=== PATIENT | female | born 1960 | race American Indian/Alaskan Native ===

== ENCOUNTER 2017-11-02 17:35 | Emergency (ER) | payer OTHER ==
--- NOTE | 2017-11-02 18:37 | XRay Report ---
FINAL REPORT EXAM: XR FOOT 3+V RT HISTORY: pain r/t injury TECHNIQUE: 3 views Left foot PRIORS: None. FINDINGS: No fracture or dislocation identified. Joint spaces are within normal limits. No erosive bony change identified. No bony lesions are identified. Small plantar calcaneal enthesophyte is noted. IMPRESSION: Negative foot series
[2017-11-03 02:00] VITALS: BP 142/88
--- NOTE | 2017-11-03 03:01 | Emergency Department Report ---
ED Lower Extremity HPI - General Chief Complaint: Extremity Injury, Lower Stated Complaint: RIGHT FOOT PAIN Time Seen by Provider: 11/03/17 02:01 Source: patient, family Mode of arrival: Wheelchair Limitations: No Limitations - History of Present Illness Initial Comments: Patient reports that she injured her right foot while getting out of bed on Monday. She is reporting pain and swelling. Denies any numbness or pain tingling. Pain 6 out of 10 and a cane to her right foot worse with movement and palpation bilateral resting. Denies any fever or chills. Denies any other injury. Patient has a history of hypertension and asthma. Fibromyalgia and anemia. Taking [id number] medication but did not help pain. MD Complaint: foot injury (pain and swelling) Onset/Timin -: days(s) Injury: Foot: Right (pain and swelling) Type of Injury: inversion Severity: moderate Severity scale (0 -10): 6 Improves With: immobilization, rest Worsens With: weight bearing, movement, palpation Context: other (get and out of bed and injured foot) Associated Symptoms: swelling, unable to bear weight. denies: snap/pop sensation, numbness, tingling, ambulatory Treatments Prior to Arrival: other (none) - Related Data Previous Rx's Medication Instructions Recorded Last Taken Type Acetaminophen/Codeine [Tylenol 1 tab PO Q6H PRN #12 tab 11/03/17 Unknown Rx /Codeine # 3 tab] Ibuprofen [Motrin] 600 mg PO Q8H PRN #15 tablet 11/03/17 Unknown Rx Allergies Allergy/AdvReac Type Severity Reaction Status Date / Time No Known Allergies Allergy Unverified 11/02/17 17:54 ED Review of Systems ROS: Stated complaint: RIGHT FOOT PAIN Other details as noted in HPI Comment: All other systems reviewed and negative Constitutional: no symptoms reported Respiratory: no symptoms reported Cardiovascular: denies: chest pain, palpitations, dyspnea on exertion, edema, syncope, paroxysmal nocturnal dyspnea Gastrointestinal: denies: abdominal pain, nausea, vomiting Genitourinary: denies: dysuria, hematuria Musculoskeletal: joint swelling, arthralgia. denies: back pain, myalgia Skin: denies: rash Neurological: abnormal gait (right foot due to injury). denies: headache, weakness, numbness, paresthesias, confusion ED Past Medical Hx - Past Medical History Previous Medical History?: Yes Hx Hypertension: Yes Hx Asthma: Yes Additional medical history: fibromyalgia,anemia-no transfusions - Surgical History Past Surgical History?: No - Family History Family history: hypertension - Social History Smoking Status: Never Smoker Substance Use Type: None - Medications Home Medications: Home Medications Medication Instructions Recorded Confirmed Last Taken Type Acetaminophen/Codeine [Tylenol 1 tab PO Q6H PRN #12 tab 11/03/17 Unknown Rx /Codeine # 3 tab] Ibuprofen [Motrin] 600 mg PO Q8H PRN #15 tablet 11/03/17 Unknown Rx ED Physical Exam - General Limitations: No Limitations General appearance: alert, in no apparent distress - Head Head exam: Present: atraumatic, normocephalic, normal inspection - Eye Eye exam: Present: normal appearance, PERRL, EOMI Pupils: Present: normal accommodation - ENT ENT exam: Present: normal exam, normal orophraynx, mucous membranes moist - Neck Neck exam: Present: normal inspection, full ROM. Absent: tenderness, lymphadenopathy - Respiratory Respiratory exam: Present: normal lung sounds bilaterally. Absent: respiratory distress, chest wall tenderness - Cardiovascular Cardiovascular Exam: Present: regular rate, normal rhythm, normal heart sounds - Extremities Exam Extremities exam: Present: full ROM (Limited range of motion to right foot), tenderness (right foot), normal capillary refill, pedal edema (right foot), joint swelling (right foot), other (no clubbing, cyanosis or edema to extremities except right foot with swelling and tenderness to palpate. +2 pulses throughout extremities. No neurovascular compromise. Patient will go color, sensation, temperature and movement to extremity except for her right foot she has limited range of motion. No abrasion, laceration. No neurovascular compromise). Absent: normal inspection, calf tenderness - Expanded Lower Extremity Exam Right Hip exam: Present: normal inspection, pelvic stability. Absent: tenderness, swelling, laceration, ecchymosis, deformity, crepidus, dislocation, erythema, external rotation, internal rotation, shortening Upper Leg exam: Present: normal inspection, full ROM. Absent: tenderness, swelling, abrasion, laceration, ecchymosis, deformity, crepidus, dislocation Knee exam: Present: normal inspection, full ROM, full knee extension. Absent: tenderness, swelling, abrasion, laceration, ecchymosis, deformity, crepidus, dislocation, erythema, effusion, pain w/ pronation/supination, posterior draw sign, pain/laxity with valgus, pain/laxity with varus Lower Leg exam: Present: normal inspection, full ROM. Absent: tenderness, swelling, abrasion, laceration, ecchymosis, deformity, crepidus, dislocation, erythema, palpable cord, Estrellita's sign Ankle exam: Present: normal inspection, full ROM. Absent: tenderness, swelling , abrasion, laceration, ecchymosis, deformity, crepidus, dislocation, erythema Foot/Toe exam: Present: tenderness (dorsal aspect of right foot), swelling ( dorsal aspect of right foot). Absent: normal inspection, full ROM (limited range of motion to right foot due to pain and swelling from injury), abrasion, laceration, ecchymosis, deformity, crepidus, dislocation, erythema, amputation, puncture wound, foreign body, calcaneal tenderness, tenderness at base of 5th metatarsal, nail avulsion, subungual hematoma Neuro vascular tendon exam: Present: no vascular compromise, motor deficit ( limited movement to right foot due to pain, swelling.), significant pain with passive ROM of distal joint. Absent: pulse deficit, abnormal cap refill, sensory deficit, tendon deficit, extremity cold to touch, pallor, abnormal 2- point discrimination, decreased fine/light touch, foot drop, peroneal nerve deficit Gait: Positive: antalgic - Back Exam Back exam: Present: normal inspection, full ROM. Absent: tenderness, CVA tenderness (R), CVA tenderness (L), muscle spasm, paraspinal tenderness, vertebral tenderness - Neurological Exam Neurological exam: Present: alert, oriented X3, abnormal gait (gait abnormal right lower extremity and foot due to pain and swelling from injury.), reflexes normal - Psychiatric Psychiatric exam: Present: normal affect, normal mood - Skin Skin exam: Present: warm, dry, intact, normal color. Absent: rash ED Course Vital Signs 11/02/17 11/03/17 17:51 01:50 Temperature 99.2 F 98.4 F Pulse Rate 82 70 Respiratory 18 18 Rate Blood Pressure 138/82 Blood Pressure 142/88 [Right] O2 Sat by Pulse 96 98 Oximetry - Reevaluation(s) Reevaluation #1: 11/03/17 03:16 Patient received [place] 5/325 2 tablets by mouth for right foot pain. See procedure note for orthopedics splinted in an crutches. - Orthopedic Splinting/Casting Injury #1 Side: right Lower Extremity Injury Location: foot Lower Extremity Immobilizer: stirrup splint Other Orthopedic Equipment: crutches Additional Comments: Patient with +2 pulses to right foot after splinting. She is able to move her toes but reports pain in her right foot. ED Lower Extremity MDM - Radiology Data Radiology results: report reviewed Syrup for right foot reveals no fracture or dislocation. Joint spaces are within normal limits. No erosive bony changes identified. No bony lesions are identified. Small plantar calcaneal osteophyte is noted. Patient with positive swelling to right foot that's not mentioned in x-ray. - Medical Decision Making ED course: Patient status post injury 3 days ago to her right foot and now reports pain and swelling unable to weight-bear. X-ray report reveals no fracture or dislocation and no mention of soft tissue swelling but patient does have soft tissue swelling on examination with tenderness to palpate the right dorsal aspect of foot and limited range of motion. She has good color, sensation and temperature to right foot. Pulses are 2+ and bounding. Patient with small plantar calcaneal enthesophyte. I discussed the patient her x-ray results. She was given [place] 5/325 2 tablets by mouth in emergency room. Please refer to procedure note for splinting. I discussed the patient she'll need to follow-up with orthopedic doctor for right foot sprain and rice therapy explained to patient. Patient discharged home with her family prescription for Motrin, Tylenol 3. Critical care attestation.: If time is entered above; I have spent that time in minutes in the direct care of this critically ill patient, excluding procedure time. ED Disposition Clinical Impression: Arthralgia of right foot Right foot sprain Qualifiers: Encounter type: initial encounter Qualified Code(s): S93.601A - Unspecified sprain of right foot, initial encounter Right foot injury Qualifiers: Encounter type: initial encounter Qualified Code(s): S99.921A - Unspecified injury of right foot, initial encounter Disposition: TO HOME OR SELFCARE Is pt being admited?: No Does the pt Need Aspirin: No Condition: Stable Instructions: Arthralgia (ED), Foot Sprain (ED), Ankle Stirrup Splint (ED), RICE Therapy (ED) Additional Instructions: Please follow up with Dr. Puente was orthopedic doctor please call later this morning to schedule an appointment for visit. No weightbearing to right lower extremity until evaluated by orthopedic See discharge instruction in Rice therapy Take Motrin for pain and inflammation to right foot. He can take Tylenol No. 3 if you have in severe pain but please do not drive or operate heavy machinery taking this medication as a cause drowsiness Prescriptions: Acetaminophen/Codeine [Tylenol /Codeine # 3 tab] 1 tab PO Q6H PRN #12 tab PRN Reason: severe pain Ibuprofen [Motrin] 600 mg PO Q8H PRN #15 tablet PRN Reason: Pain Referrals: EDY PUENTE MD [Staff Physician] - 11/06/17 Forms: Work/School Release Form(ED)
[2017-11-03] MEDS ORDERED: MOTRIN PO ONE (03:02)
[2017-11-03] MEDS ORDERED: NORCO 5/325 PO ONE (03:02)
== END 2017-11-03 03:44 | disposition home or self-care (01) ==
LOC: ED 17:35
DX: S93.601A Unspecified sprain of right foot, initial encounter (principal); I10 Essential (primary) hypertension; J45.909 Unspecified asthma, uncomplicated; W22.8XXA Striking against or struck by other objects, initial encounter; Y93.89 Activity, other specified; Y92.89 Other specified places as the place of occurrence of the external cause; Y99.8 Other external cause status
CPT/HCPCS: 99283